=== PATIENT | male | born 1950 | race Caucasian/White ===

== ENCOUNTER 2024-11-01 09:20 | Emergency (ER) | payer MEDICARE, OTHER, SELFPAY ==
[2024-11-01 09:26] VITALS: BP 137/65
--- NOTE | 2024-11-01 10:26 | ED.GENMED ---
History of Present Illness
General
Chief Complaint: Chest Pain
Source: patient
Exam Limitations: none
Time Seen by Provider: 11/01/24 09:43
Nursing documentation reviewed up to this point in time: agreed with
History of Present Illness
History of Present Illness:
74-year-old male past medical history of non-Hodgkin's lymphoma currently in remission, GERD presenting to the emergency department today with intermittent chest pain starting yesterday morning. Some radiation to the left shoulder. Seems to be
slightly worse when laying on his left side. No other specific palliation or provocation. Had symptoms just prior to arrival feels somewhat better at this point. Denies any associate shortness of breath nausea vomiting or diaphoresis. Denies
similar symptoms in the past. No history of heart disease.
Past History
Past History
ED Past Medical History: None
ED Past Surgical History: None
Social History
Tobacco: Non-smoker
Drug: None
Personal:
Review of Systems
Review of Systems
Allergies reviewed?: Yes
All Other Systems: ROS reviewed and negative except as documented in HPI and ROS
Phy Exam
Physical Exam
Physical Exam:
GENERAL: Alert , in no apparent distress
EYE: pupils equal and reactive
NECK: Supple, no significant adenopathy.
ENT: o/p clr, mmm.
CARDIAC: Regular rate and rhythm .
LUNGS: Clear breath sounds bilaterally, no acute respiratory distress, no wheezes/rales/rhonchi
ABDOMEN: Soft, without focal tenderness, no r/g, no cvat
NEUROLOGICAL: Alert and oriented, no focal neuro deficits
SKIN: Warm and dry, skin intact.
MUSCULOSKELETAL: No edema, well perfused.
PSYCH: Normal and appropriate interaction.
Scores
Heart Score for Chest Pain Patients
STEMI patient?: No
History: Slightly or Non-Suspicious
ECG: Nonspecific Repolarization
Age: >/= 65 years
Risk Factors: >/= 3 Risk Factors or History of CAD
Troponin: </= Normal Limit
Heart Score for Chest Pain Patients: 5
Heart Score Risk: 20.3% MACE over next 6 weeks
Course
Orders/Labs/Results
Orders:
Orders
11/01/24 09:21
EKG [Electrocardiogram (*1)] Urgent
Reason for Study: Chest Pain
EKG- Treatment ONCE
11/01/24 09:42
CXR2 [CR Chest - 2 Views ] Urgent
Comment:
Reason For Exam: chest pain
11/01/24 09:48
Iohexol [Omnipaque] See Protocol PO NOW STA
11/01/24 10:02
Venous Doppler Lwr Ext Left [US Periph Venous LOWER Ext LT] Urgent
Comment:
Reason For Exam: leg swelling
11/01/24 10:51
CMP [Comprehensive Metabolic Panel] Urgent
Complete Blood Count/No Diff Urgent
D-Dimer Urgent
Troponin I Urgent
11/01/24 12:04
Electrocardiogram (*1) Urgent
Reason for Study: Chest Pain
EKG- Treatment ONCE
11/01/24 12:25
Troponin I Urgent
Abnormal Lab Results
11/01/24
10:51
RBC 4.42 L 10^6/uL
(4.70-6.10)
Hgb 12.9 L g/dL
(13.0-18.0)
MCHC 32.9 L g/dL
(33.0-37.0)
MPV 11.2 H fL
(7.4-10.4)
Chloride 109 H mmol/L
(98-107)
BUN 25 H mg/dl
(9-20)
11/01/24 10:51
11/01/24 10:51
Vital Signs
Initial and Last Documented VS:
Initial Vital Signs
Temp Pulse Resp BP Pulse Ox
98.4 F 57 19 137/65 100
11/01/24 09:26 11/01/24 09:26 11/01/24 09:26 11/01/24 09:26 11/01/24 09:26
Last Documented Vital Signs
Temp Pulse Resp BP Pulse Ox
98.4 F 44 11 119/63 99
11/01/24 09:26 11/01/24 13:00 11/01/24 13:00 11/01/24 13:00 11/01/24 13:00
MDM/Problems Addressed
MDM/Problems Addressed:
74-year-old male presenting to the emergency department today with concerns of left-sided chest pain that started yesterday morning. Seems to be worse when laying on his left side denies any associated symptoms otherwise. Symptoms are very minimal
at this point. Patient refusing aspirin that was offered considering he does get reflux. Here additional assessment with troponin negative ultrasound of the leg without evidence of blood clot D-dimer negative making PE very unlikely no evidence of
acute coronary syndrome at this point chest x-ray also normal patient does appear stable for close outpatient follow-up with cardiology. Return precautions given.
*Pulse Oximetry
SaO2: 100
Oxygen Mode of Delivery: Room air
Patient hypoxic: no (99)
*Critical Care Note
Total Time (30-74mins, 75-104mins- exclusive of procedures): Not Applicable
ED Attending Note
-
Portions of this chart may have been created with voice recognition software.� Occasional wrong word or��sound alike� substitutions may have occurred due to the inherent limitations of voice recognition software.
Discharge Plan
Departure
Patient Disposition: Home (Routine Discharge)
Date of Disposition: 11/01/24
Time of Disposition: 13:27
Patient with high blood pressure during this ER visit?: No
Condition: Good
Covid-19: Not Applicable
Discharge Problem:
Chest pain
Instructions: Chest Pain DCA Follow Up
Prescriptions:
No Action
pantoprazole 40 MG tablet,delayed release (DR/EC)
20 mg PO Q48H
doxycycline hyclate 100 mg capsule
100 mg PO BID Qty: 14 0RF
Referrals:
Delphine Garcia MD [Family Provider, [facility]]
Activity Restrictions/Additional Instructions:
You came to the emergency department today with concerns of chest discomfort. Here get a reassuring assessment. Please follow closely with the [facility]. Return for any worsening, new or concerning symptoms.
Interventions
Interventions:
*Risk Screen - Suicide Last Done: 11/01/24 09:26
*General Assessment Last Done: 11/01/24 09:26
*Neglect/Abuse Screening Last Done: 11/01/24 09:26
*ED- Fall Risk Assessment Last Done: 11/01/24 10:41
*ED COVID-19 Vaccine History Last Done: 11/01/24 10:41
ED- Cardiac Assessment Last Done: 11/01/24 10:41
Discharge Date and Time
Print Language: UPPER SORBIAN
[2024-11-01 10:41] VITALS: BMI 27.3
[2024-11-01 10:44] VITALS: BP 106/63
[2024-11-01 11:05] VITALS: BP 106/53
[2024-11-01 11:07] LABS: Hematocrit 39.2 % (39.0-52.0); Hemoglobin 12.9 g/dL (13.0-18.0); Mean Corp Hgb Conc. 32.9 g/dL (33.0-37.0); Mean Corpuscular Volume 88.7 fL (80.0-94.0); Platelet Count 149 10^3/uL (130-400); Red Cell Dist. Width 13.6 % (11.5-14.5)
[2024-11-01 11:12] LABS: ALT (SGPT) 20 U/L (0-50); AST (SGOT) 21 U/L (17-59); Albumin 3.9 g/dl (3.5-5.0); Alkaline Phosphatase 69 U/L (38-126); Blood Urea Nitrogen 25 mg/dl (9-20); Calcium 9.4 mg/dl (8.4-10.2); Carbon Dioxide 25 mmol/L (22-30); Chloride 109 mmol/L (98-107); Estimated Creatinine Clearance 67 ml/min; Glucose 83 mg/dl (70-99); Potassium 4.5 mmol/L (3.5-5.1); Sodium 139 mmol/L (135-145); Total Protein 6.8 g/dl (6.3-8.2); eGFR > 60.00
[2024-11-01 11:17] LABS: D-Dimer < 0.27 ug/mlFEU (0.00-0.50)
[2024-11-01 11:23] LABS: Troponin I < 0.012 ng/ml
[2024-11-01 12:03] VITALS: BP 104/59
[2024-11-01 13:00] VITALS: BP 119/63
[2024-11-01 13:08] LABS: Troponin I < 0.012 ng/ml
== END 2024-11-01 13:33 | disposition home or self-care (01) ==
LOC: EMR 09:20
PROVIDERS: Physician Assistant; EMERGENCY PHYSICIAN Emergency Medicine; FAMILY PHYSICIAN Family Medicine
DX: R07.89 Other chest pain (principal); Z85.72 Personal history of non-Hodgkin lymphomas; R22.42 Localized swelling, mass and lump, left lower limb
CPT/HCPCS: 99285; 71046; 80053; 84484; 85027; 85379; 93005; 93971

== ENCOUNTER → 2024-11-20 11:01 | Outpatient (REF) | payer MEDICARE, OTHER, SELFPAY | LOC: RCS 11:01 | PROVIDERS: ATTENDING PHYSICIAN Student in an Organized Health Care Education/Training Program; FAMILY PHYSICIAN Family Medicine | DX: R07.2 Precordial pain (principal) | CPT/HCPCS: 93306 ==

== ENCOUNTER → 2024-12-02 13:44 | Outpatient (REF) | payer MEDICARE, OTHER, SELFPAY | LOC: RCS 13:44 | PROVIDERS: ATTENDING PHYSICIAN Student in an Organized Health Care Education/Training Program; FAMILY PHYSICIAN Family Medicine | DX: R07.2 Precordial pain (principal) | CPT/HCPCS: 93017 ==